=== PATIENT | male | born 1940 | race African-American/Black ===

== ENCOUNTER 2017-08-26 10:45 | Inpatient (IN) | payer OTHER ==
[2017-08-26] MEDS ORDERED: METOCLOPRAMIDE HCL INJECTION 10 MG/2 ML VIAL IVPUSH ONE (11:24)
[2017-08-26] MEDS ORDERED: SODIUM CHLORIDE 1,000 ML IV STA (11:25)
--- NOTE | 2017-08-26 11:48 | PDOC ---
Attending Attestation - Resident Resident Name: Juan Pablo Vargas - ED Attending Attestation I have performed the following: I have examined & evaluated the patient, The case was reviewed & discussed with the resident, I agree w/resident's findings & plan, Exceptions are as noted - HPI HPI: 08/26/17 11:38 76 year old male c/ pmh HTN, HLD, CKD, hepatitis B, liver ca not on chemotherapy p/w 2 weeks of vertiginous like symptoms. Pt reports that occasional movements causes a slow-moving vertiginous symptoms. No associated nausea or vomiting. Lately, since yesterday, started to note posterior headache worsened with movements. Not thunderclapping and not worst headache of life. Denies any other numbness, weakness, chest pain, SOB. - Physicial Exam PE: 08/26/17 11:40 GENERAL: Awake, alert, and fully oriented, in no acute distress. HEAD: No signs of trauma EYES: EOMI, sclera anicteric, conjunctiva clear ENT: Auricles normal inspection, hearing grossly normal, nares patent NECK: Normal ROM, supple LUNGS: Breath sounds equal, clear to auscultation bilaterally. No wheezes, and no crackles HEART: Regular rate and rhythm, normal S1 and S2, no murmurs, rubs or gallops ABDOMEN: Soft, nontender, normoactive bowel sounds. No guarding, no rebound. No masses EXTREMITIES: Normal range of motion, no edema. No clubbing or cyanosis. No cords, erythema, or tenderness NEUROLOGICAL: Cranial nerves II through XII intact. Normal speech. 5/5 strength upper and lower extremities. Sensation intact. No pronator drift. No dysmetria. Heel to smith normal. Rapid alternating normal. SKIN: Warm, Dry, normal turgor, no rashes or lesions noted. - Medical Decision Making 08/26/17 11:48 Vital Signs Temp Pulse Resp BP Pulse Ox 98.0 F 59 L 18 143/87 100 08/26/17 10:52 08/26/17 10:52 08/26/17 10:52 08/26/17 10:52 08/26/17 10:52 76 year old M c/ liver ca p/w persistent vertiginous symptoms and posterior headache. Differential includes posterior circulation stroke, metastatis, tension headache , migraine, peripheral vertigo. Head CT, labs, ECG, chest xray. Will admit for further neuro workup. 08/26/17 13:[address]: No significant interval change. Moderate atrophy and mild periventricular chronic microvascular ischemic disease changes. Questionable tiny right posterior basal ganglia old lacunar infarct. Chest xray reviewed: Cardiomegaly CBC, BMP 08/26/17 13:00 08/26/17 13:00 CMP Sodium 141 mmol/L (136-145) 08/26/17 13:00 Potassium 3.8 mmol/L (3.5-5.1) D 08/26/17 13:00 Chloride 105 mmol/L (98-107) 08/26/17 13:00 Carbon Dioxide 27 mmol/L (21-32) 08/26/17 13:00 Anion Gap 9 (8-16) 08/26/17 13:00 BUN 21 mg/dL (7-18) H 08/26/17 13:00 Creatinine 1.5 mg/dL (0.7-1.3) H 08/26/17 13:00 Creat Clearance w eGFR 45.50 (>60) 08/26/17 13:00 Random Glucose 95 mg/dL (74-106) D 08/26/17 13:00 Calcium 8.7 mg/dL (8.5-10.1) 08/26/17 13:00 Total Bilirubin 0.5 mg/dL (0.2-1.0) D 08/26/17 13:00 AST 21 U/L (15-37) 08/26/17 13:00 ALT 28 U/L (12-78) 08/26/17 13:00 Alkaline Phosphatase 88 U/L (45-117) 08/26/17 13:00 Creatine Kinase 163 IU/L (39-308) 08/26/17 13:00 Troponin I < 0.02 ng/ml (0.00-0.05) 08/26/17 13:00 Total Protein 7.7 g/dl (6.4-8.2) 08/26/17 13:00 Albumin 3.8 g/dl (3.4-5.0) 08/26/17 13:00 Heart Score/ECG Review #1 ECG reviewed & interpreted by me at: 11:40 08/26/17 11:51 NSR 56, LVH, no std/junaid, normal axis, normal intervals, QTC 384 msec, no brugada , no HOCM NIH Stroke Scale - Last Known Well Date/Time & Onset Date Last Known Well: 08/12/17 - Initial Evaluation Level of consciousness: Alert Ask patient the month and their age: Answers both correctly Ask patient to open & close eyes; make fist and let go: Obeys both correctly Best gaze (horizontal eye movement): Normal Visual field testing: No visual field loss Facial paresis (Show teeth/raise eyebrows/close eyes tight): Normal symmetrical movement Motor Function: Left Arm: Normal Motor Function: Right Arm: Normal (extends arm 90 (or 45) degrees for 10 seconds without drift Motor Function: Left Leg: Normal (extends leg 30 degrees for 5 seconds without drift) Motor Function: Right Leg: Normal (extends leg 30 degrees for 5 seconds without drift) Limb Ataxia: No ataxia Sensory(Use pinprick test arms,legs,trunk,face/side to side): Normal Best language (Describe picture, name items, read sentences): No Aphasia Dysarthria (read several words): Normal articulation Extinction and Inattention: No abnormality - Total Score NIH Stroke Scale Score: 0
--- NOTE | 2017-08-26 12:15 | PDOC ---
History of Present Illness - General Chief Complaint: Headache Stated Complaint: DIZZINESS/WEAKNESS/HEADACHE Time Seen by Provider: 08/26/17 11:10 History Source: Patient Exam Limitations: No Limitations - History of Present Illness Initial Comments: 08/26/17 12:06 Patient is a 76M with history of liver cancer s/p surgery, HTN, HLD, Hep C (on tenofovir) here today complaining of 1 day of headache and 2 weeks of dizziness. He states the headache onset gradually last night and radiates from the front of his head to the back of his neck. His pain gets worse with flexion of his neck. He states that his dizziness started insidiously about two weeks ago. He denies falling or any sudden worsening. He denies worsening of dizziness with activity. Denies fevers, chills, nausea, vomiting. Denies chest pain and shortness of breath. Past History - Past Medical History Allergies/Adverse Reactions: Allergies Allergy/AdvReac Type Severity Reaction Status Date / Time No Known Drug Allergies Allergy Verified 08/26/17 10:51 Home Medications: Ambulatory Orders Aspirin [Aspirin EC] 325 mg PO DAILY 03/06/15 Metoprolol Succinate [Toprol Xl] 50 mg PO DAILY 03/06/15 Nifedipine [Nifedical Xl] 90 mg PO HS 03/06/15 Simvastatin 10 mg PO HS 03/06/15 Tamsulosin HCl [Flomax -] 0.4 mg PO ASDIR 03/06/15 Tenofovir Disoproxil Fumarate [Viread] 300 mg PO DAILY 03/06/15 Folic Acid 0.4 mg PO DAILY 09/12/15 Losartan Potassium [Cozaar] 100 mg PO DAILY 09/12/15 Finasteride [Proscar -] 5 mg PO DAILY 08/26/17 Anemia: No Asthma: No Cancer: Yes (LIVER CANCER SURGERY) Cardiac Disorders: Yes (CAD) CVA: No COPD: No CHF: No DVT: No Dementia: No Diabetes: No GI Disorders: Yes (ENLARGED PROSTATE) Disorders: No HTN: Yes Hypercholesterolemia: Yes Liver Disease: Yes Seizures: No Thyroid Disease: No - Surgical History Abdominal Surgery: Yes (LIVER) - Suicide/Smoking/Psychosocial Hx Smoking History: Never smoked Have you smoked in the past 12 months: No Information on smoking cessation initiated: No Hx Alcohol Use: No Drug/Substance Use Hx: No Substance Use Type: None Hx Substance Use Treatment: No Review of Systems - Review of Systems Comments:: 08/26/17 12:15 GENERAL/CONSTITUTIONAL: No fever or chills. No weakness. HEAD, EYES, EARS, NOSE AND THROAT: No change in vision. No sore throat. CARDIOVASCULAR: No chest pain or shortness of breath RESPIRATORY: No cough, wheezing, or hemoptysis. GASTROINTESTINAL: No nausea, vomiting, diarrhea or constipation. GENITOURINARY: No dysuria, frequency, or change in urination. MUSCULOSKELETAL: No joint or muscle swelling or pain. No neck or back pain. SKIN: No rash NEUROLOGIC: No headache. Positive for vertigo. Negative for loss of consciousness, or change in strength/sensation. HEMATOLOGIC/LYMPHATIC: No anemia, easy bleeding, or history of blood clots. ALLERGIC/IMMUNOLOGIC: No hives or skin allergy. *Physical Exam - Vital Signs Last Vital Signs Temp Pulse Resp BP Pulse Ox 98.0 F 59 L 18 143/87 100 08/26/17 10:52 08/26/17 10:52 08/26/17 10:52 08/26/17 10:52 08/26/17 10:52 - Physical Exam Comments: 08/26/17 12:19 GENERAL: Awake, alert, and fully oriented, in no acute distress HEAD: No signs of trauma, normocephalic, atraumatic EYES: PERRLA, EOMI, sclera anicteric, conjunctiva clear ENT: Auricles normal inspection, hearing grossly normal, nares patent, oropharynx clear without exudates. Moist mucosa NECK: Normal ROM, supple, no lymphadenopathy, JVD, or masses LUNGS: No distress, speaks full sentences, clear to auscultation bilaterally HEART: Regular rate and rhythm, normal S1 and S2, no murmurs, rubs or gallops, peripheral pulses normal and equal bilaterally. ABDOMEN: Soft, nontender, normoactive bowel sounds. No guarding, no rebound. No masses EXTREMITIES: Normal inspection, Normal range of motion, no edema. No clubbing or cyanosis. NEUROLOGICAL: Cranial nerves II through XII grossly intact. Normal speech, normal gait, no focal sensorimotor deficits. No ataxia, negative romberg. SKIN: Warm, Dry, normal turgor, no rashes or lesions noted. ED Treatment Course - LABORATORY CBC & Chemistry Diagram: 08/26/17 13:00 08/26/17 13:00 - RADIOLOGY Radiology Studies Ordered: Category Date Time Status HEAD CT WITHOUT CONTRAST [CT] Stat CT Scan 08/26/17 11:23 Ordered CHEST X-RAY PORTABLE* [RAD] Stat Radiology 08/26/17 11:23 Taken Medical Decision Making - Medical Decision Making 08/26/17 12:19 Patient is 76M with history of liver cancer, HBV, HTN, HLD here today complaining of headache and dizziness. DDx includes, but is not limited to: posterior circulation stroke, mets, UA. No focal neuro deficits, 2 weeks since onset. Will evaluate with cbc, cmp, trop, ekg, pt/inr, cxr, head ct. Likely admit for brain MRI. 08/26/17 12:36 EKG shows sinus bradycardia with rate of 56. No st elevations/depressions. No significant t wave abnormalities. Normal axis. Normal DE/QRS/QTc intervals. 08/26/17 13:00 CT head shows no significant interval change. Does show mild periventricular chronic microvascular ischemic chagnes and questionable tiny right posterior basal ganglia old lacunar infarct. 08/26/17 13:03 CXR is poor quality, shows no acute cardiopulmonary process. Admitted for further stroke evaluation. *DC/Admit/Observation/Transfer Diagnosis at time of Disposition: Dizziness - Discharge Dispostion Condition at time of disposition: Stable Decision to Admit order: Yes - Referrals - Patient Instructions - Post Discharge Activity
[2017-08-26 13:14] LABS: HEMATOCRIT 39.8 % (35.4-49); HEMOGLOBIN 12.9 GM/dL (11.7-16.9); MCH 28.8 pg (25.7-33.7); MCHC 32.4 g/dl (32.0-35.9); MEAN CELL VOLUME 88.9 fl (80-96); MEAN PLT VOLUME 9.8 fl (7.5-11.1); PLATELET COUNT 143 K/MM3 (134-434); RBC 4.47 M/mm3 (4.00-5.60); RDW 13.7 % (11.9-15.9); WHITE BLOOD COUNT 5.7 K/mm3 (4.0-10.0)
[2017-08-26] MEDS ORDERED: METOCLOPRAMIDE HCL INJECTION 10 MG/2 ML VIAL ONE (13:14)
[2017-08-26 13:34] LABS: INR 1.16 (0.82-1.09); PROTHROMBIN TIME (PATIENT) 13.1 SEC (9.7-13.0)
[2017-08-26 13:45] LABS: ALBUMIN 3.8 g/dl (3.4-5.0); ANION GAP 9 (8-16); BILIRUBIN,TOTAL 0.5 mg/dL (0.2-1.0); BLOOD UREA NITROGEN 21 mg/dL (7-18); CALCIUM 8.7 mg/dL (8.5-10.1); CHLORIDE 105 mmol/L (98-107); CO2 27 mmol/L (21-32); CREATININE 1.5 mg/dL (0.7-1.3); GLUCOSE,RANDOM 95 mg/dL (74-106); SGPT/ALT 28 U/L (12-78); SODIUM 141 mmol/L (136-145); TOT PROT 7.7 g/dl (6.4-8.2)
[2017-08-26 13:48] LABS: ALK PHOS 88 U/L (45-117)
[2017-08-26 13:52] LABS: POTASSIUM 3.8 mmol/L (3.5-5.1); SGOT/AST 21 U/L (15-37)
[2017-08-26 14:20] LABS: URINE APPEARANCE CLEAR; URINE BILIRUBIN NEGATIVE (<2.0 mg/dL); URINE BLOOD NEGATIVE (NEGATIVE); URINE COLOR STRAW; URINE GLUCOSE (UA) NEGATIVE (NEGATIVE); URINE KETONE NEGATIVE (NEGATIVE); URINE LEUK ESTERASE NEGATIVE (NEGATIVE); URINE NITRITE NEGATIVE (NEGATIVE); URINE PROTEIN NEGATIVE (NEGATIVE); URINE UROBILINOGEN NEGATIVE mg/dL (0.2-1.0)
--- NOTE | 2017-08-26 19:14 | HP ---
Admitting History and Physical - Primary Care Physician PCP: Yaakov Lawson - Admission Chief Complaint: Headache History of Present Illness: Pt with SLADE, in the middle of the head ( from the front to the back), dull, that developed last night and didn't allow pt to sleep. Pt w/o sensory or motor weakness. Pt also c/o dizziness for the last couple of weeks, not associated with CP, palpitations, SOB. History Source: Patient - Past Medical History Cardiovascular: Yes: HTN, Hyperlipdemia Gastrointestinal: Yes: Other (Hx/o Hepatitis, Liver mass) Renal/: Yes: BPH - Past Surgical History Additional Past Surgical History: Liver SX for mass removal. - Smoking History Smoking history: Never smoked Have you smoked in the past 12 months: No - Alcohol/Substance Use Hx Alcohol Use: No Home Medications - Allergies Allergies/Adverse Reactions: Allergies Allergy/AdvReac Type Severity Reaction Status Date / Time No Known Drug Allergies Allergy Verified 08/26/17 10:51 - Home Medications Home Medications: Ambulatory Orders Aspirin [Aspirin EC] 325 mg PO DAILY 03/06/15 Metoprolol Succinate [Toprol Xl] 50 mg PO DAILY 03/06/15 Nifedipine [Nifedical Xl] 90 mg PO HS 03/06/15 Simvastatin 10 mg PO HS 03/06/15 Tamsulosin HCl [Flomax -] 0.4 mg PO ASDIR 03/06/15 Tenofovir Disoproxil Fumarate [Viread] 300 mg PO DAILY 03/06/15 Folic Acid 0.4 mg PO DAILY 09/12/15 Losartan Potassium [Cozaar] 100 mg PO DAILY 09/12/15 Finasteride [Proscar -] 5 mg PO DAILY 08/26/17 Review of Systems - Review of Systems Constitutional: denies: Chills, Fever Eyes: denies: Blurred Vision, Double Vision HENT: denies: Ear Discharge, Ear Pain, Epistaxis, Nasal Congestion, Throat Pain Neck: denies: Pain on Movement, Stiffness Cardiovascular: denies: Chest Pain, Edema, Palpitations Respiratory: denies: Cough, SOB, SOB on Exertion Gastrointestinal: denies: Abdominal Pain, Diarrhea, Nausea, Vomiting Genitourinary: denies: Burning, Discharge Musculoskeletal: denies: Back Pain, Muscle Pain Integumentary: denies: Bruising, Rash Neurological: reports: Dizziness, Headache. denies: Change in LOC, Change in Speech, Confusion, Incoordination, Numbness, Parasthesia, Syncope, Tremors, Unsteady Gait Endocrine: denies: Excessive Sweating, Intolerance to Cold Hematology/Lymphatic: denies: Easily Bruised, Excessive Bleeding Psychiatric: denies: Anxiety, Depression Physical Examination Vital Signs: Vital Signs Temperature 98.0 F 08/26/17 10:52 Pulse Rate 71 08/26/17 14:52 Respiratory Rate 18 08/26/17 10:52 Blood Pressure 109/68 08/26/17 14:52 O2 Sat by Pulse Oximetry (%) 97 08/26/17 14:52 Constitutional: Yes: No Distress, Calm Eyes: Yes: Conjunctiva Clear, EOM Intact, PERRL HENT: Yes: Normocephalic. No: Epistaxis, Pharyngeal Erythema, Rhinnorhea Neck: Yes: Trachea Midline. No: Lymphadenopathy, Tenderness Cardiovascular: Yes: Regular Rate and Rhythm, S1, S2 Respiratory: Yes: Regular, CTA Bilaterally. No: Rales Gastrointestinal: Yes: Normal Bowel Sounds, Soft. No: Tenderness ...Rectal Exam: Yes: Deferred Renal/: No: CVA Tenderness - Left, CVA Tenderness - Right Musculoskeletal: No: Back Pain, Joint Swelling Edema: No Integumentary: No: Bruising, Rash Neurological: Yes: Alert, Oriented, Cran Nerves II-XII Intact Psychiatric: Yes: Alert, Oriented Labs: CBC, BMP 08/26/17 13:00 08/26/17 13:00 Imaging - Results Chest X-ray: Report Reviewed Cat Scan: Report Reviewed Problem List - Problems (1) Dizziness Code(s): R42 - DIZZINESS AND GIDDINESS (2) Headache Code(s): R51 - HEADACHE (3) CVA (cerebral vascular accident) Code(s): I63.9 - CEREBRAL INFARCTION, UNSPECIFIED (4) High blood pressure Assessment/Plan: probable- per head CT scan Code(s): I10 - ESSENTIAL (PRIMARY) HYPERTENSION Qualifiers: Hypertension type: essential hypertension Qualified Code(s): I10 - Essential (primary) hypertension Assessment/Plan Admit to monitor bed Neurochecks Neuro consult. AM labs. Consider repeating Head CT scan in AM. Pt's case was d/w pt and son (at bed side).
[2017-08-26] MEDS ORDERED: NIFEdipine E.R. 90 MG TABLET (FP) PO SCH (22:00)
[2017-08-26] MEDS: ACETAMINOPHEN 325 MG TABLET (FP) PO PRN (22:51)
[2017-08-26] MEDS: ATORVASTATIN CA 10 MG TABLET (FP) PO SCH (22:51)
[2017-08-27 03:17] VITALS: BMI 29.8
[2017-08-27 08:05] LABS: HEMATOCRIT 40.7 % (35.4-49); HEMOGLOBIN 13.3 GM/dL (11.7-16.9); MCH 28.8 pg (25.7-33.7); MCHC 32.7 g/dl (32.0-35.9); MEAN CELL VOLUME 88.2 fl (80-96); MEAN PLT VOLUME 10.1 fl (7.5-11.1); PLATELET COUNT 136 K/MM3 (134-434); RBC 4.62 M/mm3 (4.00-5.60); RDW 13.9 % (11.9-15.9); WHITE BLOOD COUNT 5.7 K/mm3 (4.0-10.0)
[2017-08-27 08:57] LABS: ALBUMIN 3.5 g/dl (3.4-5.0); ANION GAP 10 (8-16); BILIRUBIN,TOTAL 0.4 mg/dL (0.2-1.0); BLOOD UREA NITROGEN 20 mg/dL (7-18); CALCIUM 8.3 mg/dL (8.5-10.1); CHLORIDE 106 mmol/L (98-107); CO2 26 mmol/L (21-32); CREATININE 1.3 mg/dL (0.7-1.3); GLUCOSE,RANDOM 87 mg/dL (74-106); POTASSIUM 3.2 mmol/L (3.5-5.1); SGOT/AST 21 U/L (15-37); SGPT/ALT 27 U/L (12-78); SODIUM 142 mmol/L (136-145); TOT PROT 7.2 g/dl (6.4-8.2)
[2017-08-27 09:06] LABS: ALK PHOS 82 U/L (45-117)
[2017-08-27] MEDS: TAMSULOSIN HCL 0.4 MG CAP.ER.24H (FP) PO SCH (09:29)
[2017-08-27] MEDS: LOSARTAN POTASSIUM 50 MG TABLET (FP) PO SCH (09:29)
[2017-08-27] MEDS ORDERED: PT OWN MED DRAWER 7, Y5N ONE ×2 (09:31→14:26)
[2017-08-27] MEDS ORDERED: ASPIRIN 325 MG ENTERIC COATED TABLET (FP) PO SCH (10:00)
[2017-08-27] MEDS ORDERED: FINASTERIDE 5 MG TABLET (FP) PO SCH (10:00)
[2017-08-27] MEDS ORDERED: TENOFOVIR DISOPROXIL FUMARATE 300 MG TABLET PO SCH (10:00)
[2017-08-27] MEDS ORDERED: FOLIC ACID 1 MG TABLET (FP) PO SCH (10:00)
--- NOTE | 2017-08-27 11:13 | PN ---
Progress Note, Physician - Current Medication List Current Medications: Active Medications Acetaminophen (Tylenol -) 650 mg PO Q6H PRN PRN Reason: PAIN Last Admin: 08/26/17 22:51 Dose: 650 mg Aspirin (Ecotrin -) 325 mg PO DAILY [facility] Last Admin: 08/27/17 09:29 Dose: 325 mg Atorvastatin Calcium (Lipitor -) 10 mg PO HS [facility] Last Admin: 08/26/17 22:51 Dose: 10 mg Finasteride (Proscar -) 5 mg PO DAILY [facility] Last Admin: 08/27/17 09:29 Dose: 5 mg Folic Acid (Folic Acid -) 1 mg PO DAILY [facility] Last Admin: 08/27/17 09:30 Dose: 1 mg Losartan Potassium (Cozaar -) 100 mg PO DAILY [facility] Last Admin: 08/27/17 09:29 Dose: 100 mg Metoprolol Succinate (Toprol Xl -) 50 mg PO DAILY [facility] Last Admin: 08/27/17 09:29 Dose: 50 mg Nifedipine (Procardia Xl -) 90 mg PO [facility] Last Admin: 08/26/17 22:51 Dose: 90 mg Tamsulosin HCl (Flomax -) 0.4 mg PO DAILY@0830 [facility] Last Admin: 08/27/17 09:29 Dose: 0.4 mg Tenofovir Disoproxil Fumarate (Viread -) 300 mg PO DAILY [facility] - Objective Vital Signs: Vital Signs Temperature 97.8 F 08/27/17 09:00 Pulse Rate 68 08/27/17 09:00 Respiratory Rate 16 08/27/17 09:00 Blood Pressure 110/62 08/27/17 09:00 O2 Sat by Pulse Oximetry (%) 96 08/27/17 09:00 Labs: CBC, BMP 08/27/17 07:30 08/27/17 07:30 INR, PTT INR 1.16 (0.82-1.09) H 08/26/17 13:00 Problem List - Problems (1) Dizziness Code(s): R42 - DIZZINESS AND GIDDINESS (2) Headache Code(s): R51 - HEADACHE (3) CVA (cerebral vascular accident) Code(s): I63.9 - CEREBRAL INFARCTION, UNSPECIFIED (4) High blood pressure Code(s): I10 - ESSENTIAL (PRIMARY) HYPERTENSION Qualifiers: Hypertension type: essential hypertension Qualified Code(s): I10 - Essential (primary) hypertension
[2017-08-27] MEDS ORDERED: POLYETHYLENE GLYCOL 3350 119 GM BTL PO ONE (12:10)
[2017-08-27] MEDS ORDERED: KCL 10 MEQ IVPB 10 MEQ/100 ML INFUS.BAG IVPB SCH (12:15)
--- NOTE | 2017-08-27 12:15 | PN ---
Progress Note, Physician History of Present Illness: Pt w/o SLADE, dizziness, palpitation, CP, SOB, abd pain; pt is sitting in bed since yesterday. Pt c/o constipation for couple of days - Current Medication List Current Medications: Active Medications Acetaminophen (Tylenol -) 650 mg PO Q6H PRN PRN Reason: PAIN Last Admin: 08/26/17 22:51 Dose: 650 mg Aspirin (Ecotrin -) 325 mg PO DAILY [facility] Last Admin: 08/27/17 09:29 Dose: 325 mg Atorvastatin Calcium (Lipitor -) 10 mg PO HS [facility] Last Admin: 08/26/17 22:51 Dose: 10 mg Finasteride (Proscar -) 5 mg PO DAILY [facility] Last Admin: 08/27/17 09:29 Dose: 5 mg Folic Acid (Folic Acid -) 1 mg PO DAILY [facility] Last Admin: 08/27/17 09:30 Dose: 1 mg Losartan Potassium (Cozaar -) 100 mg PO DAILY [facility] Last Admin: 08/27/17 09:29 Dose: 100 mg Metoprolol Succinate (Toprol Xl -) 50 mg PO DAILY [facility] Last Admin: 08/27/17 09:29 Dose: 50 mg Nifedipine (Procardia Xl -) 90 mg PO [facility] Last Admin: 08/26/17 22:51 Dose: 90 mg Tamsulosin HCl (Flomax -) 0.4 mg PO DAILY@0830 [facility] Last Admin: 08/27/17 09:29 Dose: 0.4 mg Tenofovir Disoproxil Fumarate (Viread -) 300 mg PO DAILY [facility] - Objective Vital Signs: Vital Signs Temperature 97.8 F 08/27/17 09:00 Pulse Rate 68 08/27/17 09:00 Respiratory Rate 16 08/27/17 09:00 Blood Pressure 110/62 08/27/17 09:00 O2 Sat by Pulse Oximetry (%) 96 08/27/17 09:00 Constitutional: Yes: No Distress, Calm Cardiovascular: Yes: Regular Rate and Rhythm, S1, S2 Respiratory: Yes: Regular, CTA Bilaterally. No: Rales Gastrointestinal: Yes: Normal Bowel Sounds, Soft. No: Tenderness Edema: No Neurological: Yes: Alert, Oriented, Cran Nerves II-XII Intact Psychiatric: Yes: Alert, Oriented Labs: CBC, BMP 08/27/17 07:30 08/27/17 07:30 INR, PTT INR 1.16 (0.82-1.09) H 08/26/17 13:00 Problem List - Problems (1) Dizziness Code(s): R42 - DIZZINESS AND GIDDINESS (2) Headache Code(s): R51 - HEADACHE (3) CVA (cerebral vascular accident) Code(s): I63.9 - CEREBRAL INFARCTION, UNSPECIFIED (4) High blood pressure Code(s): I10 - ESSENTIAL (PRIMARY) HYPERTENSION Qualifiers: Hypertension type: essential hypertension Qualified Code(s): I10 - Essential (primary) hypertension (5) Hyponatremia Code(s): E87.1 - HYPO-OSMOLALITY AND HYPONATREMIA Assessment/Plan Admitted to monitor bed Neurochecks Neuro consult- further eval per Neuro. Peplete K; Check Mg AM labs. Case was reviewed with pt's nurse.
[2017-08-27 13:51] LABS: MAGNESIUM 2.4 mg/dL (1.8-2.4)
[2017-08-27] MEDS: POTASSIUM CHLORIDE 10 MEQ in SODIUM CHLORIDE 100 ML IVPB SCH ×2 (13:51→17:46)
[2017-08-27] MEDS ORDERED: POTASSIUM CHLORIDE TABS 20 MEQ TABLET.ER (FP) PO ONE (17:45)
[2017-08-27] MEDS: ATORVASTATIN CA 10 MG TABLET (FP) PO SCH (21:50)
[2017-08-27] MEDS: NIFEdipine E.R. 90 MG TABLET (FP) PO SCH (21:50)
[2017-08-28] MEDS: ACETAMINOPHEN 325 MG TABLET (FP) PO PRN ×2 (06:07→10:03)
[2017-08-28 07:25] LABS: ANION GAP 9 (8-16); BLOOD UREA NITROGEN 25 mg/dL (7-18); CALCIUM 8.5 mg/dL (8.5-10.1); CHLORIDE 106 mmol/L (98-107); CO2 26 mmol/L (21-32); GLUCOSE,RANDOM 99 mg/dL (74-106); POTASSIUM 3.4 mmol/L (3.5-5.1); SODIUM 141 mmol/L (136-145)
[2017-08-28 07:28] LABS: CREATININE 1.3 mg/dL (0.7-1.3)
[2017-08-28] MEDS: LOSARTAN POTASSIUM 50 MG TABLET (FP) PO SCH (10:00)
[2017-08-28] MEDS: TAMSULOSIN HCL 0.4 MG CAP.ER.24H (FP) PO SCH (10:00)
--- NOTE | 2017-08-28 12:47 | PN ---
Progress Note, Physician History of Present Illness: Pt w/o dizziness, palpitation, CP, SOB, abd pain; pt is sitting in bed since yesterday. Pt c/o constipation for couple of days. Pt with SLADE and neck pain thia AM, now resolved - Current Medication List Current Medications: Active Medications Acetaminophen (Tylenol -) 650 mg PO Q6H PRN PRN Reason: PAIN Last Admin: 08/28/17 10:03 Dose: 650 mg Aspirin (Ecotrin -) 325 mg PO DAILY@1300 [facility] Atorvastatin Calcium (Lipitor -) 10 mg PO [facility] Last Admin: 08/27/17 21:50 Dose: 10 mg Finasteride (Proscar -) 5 mg PO [facility] Folic Acid (Folic Acid -) 1 mg PO [facility] Losartan Potassium (Cozaar -) 100 mg PO DAILY [facility] Last Admin: 08/28/17 10:00 Dose: 100 mg Metoprolol Succinate (Toprol Xl -) 50 mg PO DAILY [facility] Last Admin: 08/28/17 10:00 Dose: 50 mg Nifedipine (Procardia Xl -) 90 mg PO DAILY@1300 [facility] Last Admin: 08/27/17 21:50 Dose: 90 mg Tamsulosin HCl (Flomax -) 0.4 mg PO DAILY@0830 [facility] Last Admin: 08/28/17 10:00 Dose: 0.4 mg Tenofovir Disoproxil Fumarate (Viread -) 300 mg PO [facility] - Objective Vital Signs: Vital Signs Temperature 98 F 08/28/17 06:37 Pulse Rate 74 08/28/17 06:37 Respiratory Rate 18 08/28/17 06:37 Blood Pressure 147/87 08/28/17 06:37 O2 Sat by Pulse Oximetry (%) 97 08/27/17 21:00 Constitutional: Yes: No Distress, Calm Cardiovascular: Yes: Regular Rate and Rhythm, S1, S2 Respiratory: Yes: Regular, CTA Bilaterally. No: Rales Gastrointestinal: Yes: Normal Bowel Sounds, Soft. No: Tenderness Edema: No Neurological: Yes: Alert, Oriented, Cran Nerves II-XII Intact Labs: CBC, BMP 08/27/17 07:30 08/28/17 05:30 INR, PTT INR 1.16 (0.82-1.09) H 08/26/17 13:00 Problem List - Problems (1) Dizziness Code(s): R42 - DIZZINESS AND GIDDINESS (2) Headache Code(s): R51 - HEADACHE (3) CVA (cerebral vascular accident) Code(s): I63.9 - CEREBRAL INFARCTION, UNSPECIFIED (4) High blood pressure Code(s): I10 - ESSENTIAL (PRIMARY) HYPERTENSION Qualifiers: Hypertension type: essential hypertension Qualified Code(s): I10 - Essential (primary) hypertension (5) Hypokalemia Assessment/Plan: improved; to replete again. Code(s): E87.6 - HYPOKALEMIA (6) Constipation Code(s): K59.00 - CONSTIPATION, UNSPECIFIED Assessment/Plan Admitted to monitor bed Neurochecks Neuro consult- further eval per Neuro. Replete Everette Wang AM labs. Case was reviewed with pt's nurse.
[2017-08-28] MEDS: ASPIRIN 325 MG ENTERIC COATED TABLET (FP) PO SCH (13:00)
[2017-08-28] MEDS: NIFEdipine E.R. 90 MG TABLET (FP) PO SCH (13:00)
[2017-08-28] MEDS ORDERED: POTASSIUM CHLORIDE TABS 20 MEQ TABLET.ER (FP) PO ONE (13:30)
[2017-08-28] MEDS: POLYETHYLENE GLYCOL 3350 119 GM BTL PO SCH ×2 (13:46→21:16)
[2017-08-28] MEDS: ATORVASTATIN CA 10 MG TABLET (FP) PO SCH (21:15)
[2017-08-28] MEDS ORDERED: TENOFOVIR DISOPROXIL FUMARATE 300 MG TABLET PO SCH (22:00)
[2017-08-28] MEDS ORDERED: FINASTERIDE 5 MG TABLET (FP) PO SCH (22:00)
[2017-08-28] MEDS ORDERED: FOLIC ACID 1 MG TABLET (FP) PO SCH (22:00)
--- NOTE | 2017-08-28 22:28 | EKG ---
Test Reason : Blood Pressure : / mmHG Vent. Rate : 056 BPM Atrial Rate : 056 BPM P-R Int : 156 ms QRS Dur : 100 ms QT Int : 398 ms P-R-T Axes : 020 -07 021 degrees QTc Int : 384 ms SINUS BRADYCARDIA MODERATE VOLTAGE CRITERIA FOR LVH, MAY BE NORMAL VARIANT BORDERLINE ECG WHEN COMPARED WITH ECG OF 23-MAY-2015 18:32, NO SIGNIFICANT CHANGE WAS FOUND Confirmed by POLLY RIDDLE MD ([id number]) on 08/28/2017 10:28:07 PM Referred By: Confirmed By:POLLY RIDDLE MD
[2017-08-29] MEDS ORDERED: PT OWN MED DRAWER 7, Y5N ONE ×5 (01:32→14:37)
[2017-08-29 07:19] LABS: ANION GAP 7 (8-16); BLOOD UREA NITROGEN 22 mg/dL (7-18); CALCIUM 8.5 mg/dL (8.5-10.1); CHLORIDE 106 mmol/L (98-107); CO2 28 mmol/L (21-32); CREATININE 1.4 mg/dL (0.7-1.3); GLUCOSE,RANDOM 103 mg/dL (74-106); MAGNESIUM 2.5 mg/dL (1.8-2.4); POTASSIUM 3.6 mmol/L (3.5-5.1); SODIUM 141 mmol/L (136-145)
[2017-08-29] MEDS: TAMSULOSIN HCL 0.4 MG CAP.ER.24H (FP) PO SCH (08:48)
[2017-08-29] MEDS: LOSARTAN POTASSIUM 50 MG TABLET (FP) PO SCH (09:06)
[2017-08-29] MEDS: POLYETHYLENE GLYCOL 3350 119 GM BTL PO SCH (09:06)
--- NOTE | 2017-08-29 09:18 | CONSULT ---
Consult - text type - Consultation Consultation Note: Neurology History of Present Illness - General Chief Complaint: Headache Stated Complaint: DIZZINESS/WEAKNESS/HEADACHE - History of Present Illness Patient is a 76M with history of liver cancer s/p surgery, HTN, HLD, Hep C (on tenofovir) admitted for new onset headache and 2 weeks of dizziness. He stated the headache had onset gradually overnight and radiatede from the front of his head to the back of his neck. His pain was worse with flexion of his neck with possibly cervicalgia. He states that his dizziness started insidiously about two weeks ago. He denied falling or any sudden worsening. He denies worsening of dizziness with activity. Denies fevers, chills, nausea, vomiting. Denies chest pain and shortness of breath. He completed CT head which did not show acute changes, there was note of old infarct. Discussed with patient and he does take ASA 325mg daily and reports good compliance. Also on Statin for HLD. Of note, blood pressures have varied during his admission and possibly tension type headache 2/2 HTN. Today, his symptoms are better and was ambulating during my encounter. Denies any new neurologic complaints. Past History - Past Medical History Allergies/Adverse Reactions: Allergies Allergy/AdvReac Type Severity Reaction Status Date / Time No Known Drug Allergies Allergy Verified 08/26/17 10:51 Home Medications: Ambulatory Orders Aspirin [Aspirin EC] 325 mg PO DAILY 03/06/15 Metoprolol Succinate [Toprol Xl] 50 mg PO DAILY 03/06/15 Nifedipine [Nifedical Xl] 90 mg PO HS 03/06/15 Simvastatin 10 mg PO HS 03/06/15 Tamsulosin HCl [Flomax -] 0.4 mg PO ASDIR 03/06/15 Tenofovir Disoproxil Fumarate [Viread] 300 mg PO DAILY 03/06/15 Folic Acid 0.4 mg PO DAILY 09/12/15 Losartan Potassium [Cozaar] 100 mg PO DAILY 09/12/15 Finasteride [Proscar -] 5 mg PO DAILY 08/26/17 Anemia: No Asthma: No Cancer: Yes (LIVER CANCER SURGERY) Cardiac Disorders: Yes (CAD) CVA: No COPD: No CHF: No DVT: No Dementia: No Diabetes: No GI Disorders: Yes (ENLARGED PROSTATE) Disorders: No HTN: Yes Hypercholesterolemia: Yes Liver Disease: Yes Seizures: No Thyroid Disease: No - Surgical History Abdominal Surgery: Yes (LIVER) - Suicide/Smoking/Psychosocial Hx Smoking History: Never smoked Have you smoked in the past 12 months: No Information on smoking cessation initiated: No Hx Alcohol Use: No Drug/Substance Use Hx: No Substance Use Type: None Hx Substance Use Treatment: No Review of Systems GENERAL/CONSTITUTIONAL: No fever or chills. No weakness. HEAD, EYES, EARS, NOSE AND THROAT: No change in vision. No sore throat. CARDIOVASCULAR: No chest pain or shortness of breath RESPIRATORY: No cough, wheezing, or hemoptysis. GASTROINTESTINAL: No nausea, vomiting, diarrhea or constipation. GENITOURINARY: No dysuria, frequency, or change in urination. MUSCULOSKELETAL: No joint or muscle swelling or pain. No neck or back pain. SKIN: No rash NEUROLOGIC: No headache. Positive for vertigo. Negative for loss of consciousness, or change in strength/sensation. HEMATOLOGIC/LYMPHATIC: No anemia, easy bleeding, or history of blood clots. ALLERGIC/IMMUNOLOGIC: No hives or skin allergy. *Physical Exam Vital Signs Period Temp Pulse Resp BP Sys/Clark Pulse Ox Last 24 Hr 97.6 F-98.5 F 57-68 16-18 116-149/72-89 96-96 GENERAL: Awake, alert, and fully oriented, in no acute distress HEAD: No signs of trauma, normocephalic, atraumatic EYES: PERRLA, EOMI, sclera anicteric, conjunctiva clear ENT: Auricles normal inspection, hearing grossly normal, nares patent, oropharynx clear without exudates. Moist mucosa NECK: Normal ROM, supple, no lymphadenopathy, JVD, or masses LUNGS: No distress, speaks full sentences, clear to auscultation bilaterally HEART: Regular rate and rhythm, normal S1 and S2, no murmurs, rubs or gallops, peripheral pulses normal and equal bilaterally. ABDOMEN: Soft, nontender, normoactive bowel sounds. No guarding, no rebound. No masses EXTREMITIES: Normal inspection, Normal range of motion, no edema. No clubbing or cyanosis. NEUROLOGICAL: Cranial nerves II through XII grossly intact. Normal speech, normal gait, no focal sensorimotor deficits. No ataxia, negative romberg. SKIN: Warm, Dry, normal turgor, no rashes or lesions noted. CBCD WBC 5.7 K/mm3 (4.0-10.0) 08/27/17 07:30 RBC 4.62 M/mm3 (4.00-5.60) 08/27/17 07:30 Hgb 13.3 GM/dL (11.7-16.9) 08/27/17 07:30 Hct 40.7 % (35.4-49) 08/27/17 07:30 MCV 88.2 fl (80-96) 08/27/17 07:30 MCHC 32.7 g/dl (32.0-35.9) 08/27/17 07:30 RDW 13.9 % (11.9-15.9) 08/27/17 07:30 Plt Count 136 K/MM3 (134-434) 08/27/17 07:30 MPV 10.1 fl (7.5-11.1) 08/27/17 07:30 CMP Sodium 141 mmol/L (136-145) 08/29/17 06:37 Potassium 3.6 mmol/L (3.5-5.1) 08/29/17 06:37 Chloride 106 mmol/L (98-107) 08/29/17 06:37 Carbon Dioxide 28 mmol/L (21-32) 08/29/17 06:37 Anion Gap 7 (8-16) L 08/29/17 06:37 BUN 22 mg/dL (7-18) H 08/29/17 06:37 Creatinine 1.4 mg/dL (0.7-1.3) H 08/29/17 06:37 Creat Clearance w eGFR 53.67 (>60) 08/27/17 07:30 Random Glucose 103 mg/dL (74-106) 08/29/17 06:37 Calcium 8.5 mg/dL (8.5-10.1) 08/29/17 06:37 Total Bilirubin 0.4 mg/dL (0.2-1.0) 08/27/17 07:30 AST 21 U/L (15-37) 08/27/17 07:30 ALT 27 U/L (12-78) 08/27/17 07:30 Alkaline Phosphatase 82 U/L (45-117) 08/27/17 07:30 Total Protein 7.2 g/dl (6.4-8.2) 06/02/18 07:30 Albumin 3.5 g/dl (3.4-5.0) 08/27/17 07:30 CARDIAC ENZYMES Creatine Kinase 163 IU/L (39-308) 08/26/17 13:00 Troponin I < 0.02 ng/ml (0.00-0.05) 08/26/17 13:00 - RADIOLOGY CT head reviewed Medical Decision Making 76M with history of liver cancer s/p surgery, HTN, HLD, Hep C (on tenofovir) admitted for new onset headache and 2 weeks of dizziness. He stated the headache had onset gradually overnight and radiatede from the front of his head to the back of his neck. His pain was worse with flexion of his neck with possibly cervicalgia. He states that his dizziness started insidiously about two weeks ago. He denied falling or any sudden worsening. He denies worsening of dizziness with activity. Denies fevers, chills, nausea, vomiting. Denies chest pain and shortness of breath. He completed CT head which did not show acute changes, there was note of old infarct. Discussed with patient and he does take ASA 325mg daily and reports good compliance. Should be continued Also on Statin for HLD, should be continued. Blood pressures have varied during his admission and possibly tension type headache 2/2 HTN. Does not require further imaging and neurologic exam nonfocal. Continue BP mgmt, maintain normotensive range. Hydration recommended, avoid sudden or rapid head movement Symptoms improved, would not require further imaging at this time, asymptomatic Discussed outpatient followup, patient in agreement, will call for appt.
[2017-08-29] MEDS: ASPIRIN 325 MG ENTERIC COATED TABLET (FP) PO SCH (12:46)
[2017-08-29 14:35] VITALS: BP 137/77; PULSE 57; TEMP 97.8
[2017-08-29] MEDS: NIFEdipine E.R. 90 MG TABLET (FP) PO SCH (15:12)
--- NOTE | 2017-08-29 15:37 | DS ---
Physical Examination Vital Signs: Vital Signs Temperature 97.8 F 08/29/17 14:00 Pulse Rate 57 L 08/29/17 14:00 Respiratory Rate 16 08/29/17 14:00 Blood Pressure 137/77 08/29/17 14:00 O2 Sat by Pulse Oximetry (%) 97 08/29/17 09:00 Findings/Remarks: Pt w/o SLADE, neck pain today. Pt w/o SOB, CP, palpitaitons, dizziness, and pain. Constitutional: Yes: No Distress, Calm Cardiovascular: Yes: Regular Rate and Rhythm, S1, S2 Respiratory: Yes: Regular, CTA Bilaterally. No: Rales Gastrointestinal: Yes: Normal Bowel Sounds, Soft. No: Tenderness Edema: No Neurological: Yes: Alert, Oriented, Cran Nerves II-XII Intact Labs: CBC, BMP 08/27/17 07:30 08/29/17 06:37 Discharge Summary Reason For Visit: DIZZINESS Current Active Problems CVA (cerebral vascular accident) (Acute) Constipation (Acute) Dizziness (Acute) Hyponatremia (Acute) Procedures: Principal: Head CT scan. CXR Hospital Course: Pt came to ER c/o midline SLADE, from front to back, no specific trigger, lasting all night before ER visit. 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 Pt was admitted to monitor bed; pt's SLADE resolved; pt was seen by Neuro (Dr. Temple), cleared for DC with outpatient f/u. Condition: Improved - Instructions Diet, Activity, Other Instructions: Diet: resume. Call doctor office for appointment. Referrals: Arnulfo Temple MD [Staff Physician] - (1 to 2 weeks; call for appointment.) Yaakov Lawson MD [Primary Care Provider] - (within one week; call for appointment.) Disposition: HOME - Home Medications Comprehensive Discharge Medication List: Ambulatory Orders
== END 2017-08-29 18:21 | disposition home or self-care (01) | DRG 149 ==
LOC: JER 10:45 → JERBED 14:00 → J4S 20:34
PROVIDERS: ADMIT Specialist; ATTEND Specialist
DX: R42 Dizziness and giddiness (principal); B19.10 Unspecified viral hepatitis B without hepatic coma; E87.1 Hypo-osmolality and hyponatremia; I12.9 Hypertensive chronic kidney disease with stage 1 through stage 4 chronic kidney disease, or unspecified chronic kidney disease; N18.9 Chronic kidney disease, unspecified; E78.5 Hyperlipidemia, unspecified; Z85.05 Personal history of malignant neoplasm of liver; K59.00 Constipation, unspecified; E87.6 Hypokalemia; G44.209 Tension-type headache, unspecified, not intractable; Z86.73 Personal history of transient ischemic attack (TIA), and cerebral infarction without residual deficits
CPT/HCPCS: 36415; 70450-TC; 71045-TC-FY; 80048; 80053; 81003; 82550; 82553; 83735; 84439; 84443; 84481; 84484; 85027; 85610; 87086; 93005; 93010; 99282-25; J7030

== ENCOUNTER 2018-05-28 14:47 | Emergency (ER) | payer OTHER ==
[2018-05-28 14:52] VITALS: TEMP 98.1; BMI 29.7
--- NOTE | 2018-05-28 15:21 | PDOC ---
History of Present Illness - General Chief Complaint: Headache Stated Complaint: HEADACHE Time Seen by Provider: 05/28/18 15:20 History Source: Patient Exam Limitations: No Limitations - History of Present Illness Initial Comments: 05/28/18 15:20 77 year old male with PMH liver cancer s/p surgery, HTN, HLD, HCV on tenofovir presented to ED for headache x3 days. Pt stated his headache is located to the top of his head, constant, throbbing, 6/10. He stated his headache feels similar to his prior headaches because it is the same location, but that it usually would have subsided by now. Pt reported no medication for his headache yesterday or the day before, but took two aleve today without relief of his symptoms. Pt denied fever, chills, weakness, numbness, tingling visual changes and all other symptoms. Past History - Past Medical History Allergies/Adverse Reactions: Allergies Allergy/AdvReac Type Severity Reaction Status Date / Time No Known Drug Allergies Allergy Verified 05/28/18 14:52 Home Medications: Ambulatory Orders Aspirin [Aspirin EC] 325 mg PO DAILY 03/06/15 Metoprolol Succinate [Toprol Xl] 50 mg PO DAILY 03/06/15 Nifedipine [Nifedical Xl] 60 mg PO HS 03/06/15 Simvastatin 10 mg PO HS 03/06/15 Tamsulosin HCl [Flomax -] 0.8 mg PO ASDIR 03/06/15 Tenofovir Disoproxil Fumarate [Viread] 300 mg PO DAILY 03/06/15 Losartan Potassium [Cozaar] 100 mg PO DAILY 09/12/15 Anemia: No Asthma: No Cancer: Yes (LIVER CANCER SURGERY) Cardiac Disorders: Yes (CAD) CVA: No COPD: No CHF: No DVT: No Dementia: No Diabetes: No GI Disorders: Yes (ENLARGED PROSTATE) Disorders: No HTN: Yes Hypercholesterolemia: Yes Liver Disease: Yes Seizures: No Thyroid Disease: No - Surgical History Abdominal Surgery: Yes (LIVER) Appendectomy: No Cardiac Surgery: No Cholecystectomy: No Lung Surgery: No Neurologic Surgery: No Orthopedic Surgery: No - Suicide/Smoking/Psychosocial Hx Smoking History: Never smoked Have you smoked in the past 12 months: No Hx Alcohol Use: No Drug/Substance Use Hx: No Substance Use Type: None Hx Substance Use Treatment: No Review of Systems - Review of Systems Able to Perform ROS?: Yes Comments:: 05/28/18 15:42 General: denied fever, chills, night sweats, generalized weakness. HEENT: denied sore throat, rhinorrhea, ear pain. Heart: denied chest pain, palpitations, syncope, diaphoresis. Respiratory: denied shortness of breath, cough, sputum production, hemoptysis. Abdomen: denied abdominal pain, nausea, vomiting, diarrhea, constipation, blood in stool. : denied dysuria, increased urinary frequency, hematuria, urinary incontinence , flank pain. Back: denied back pain. Musculoskeletal: denied joint pain, muscle pain, joint swelling. Neurological: admitted to headache. denied dizziness, numbness, tingling, weakness. Skin: denied rash, laceration, abrasion. *Physical Exam - Vital Signs Last Vital Signs Temp Pulse Resp BP Pulse Ox 98.1 F 67 18 113/59 L 99 05/28/18 14:49 05/28/18 14:49 05/28/18 14:49 05/28/18 14:49 05/28/18 14:49 - Physical Exam Comments: 05/28/18 15:42 Constitutional: Well-nourished, Well-developed, appearing stated age. HEENT: head is normocephalic, atraumatic. EOMI. PERRLA. Neck: supple. Full ROM. Heart: regular rhythm. no murmurs, rubs or gallops. Lungs: clear to auscultation bilaterally. no crackles, rhonchi or wheezing. no stridor. Abdomen: soft, nontender. normal bowel sounds. no rebound, guarding, masses. Extremities: Peripheral pulses intact. No lower extremity edema. Neurological: Alert. Oriented x3. CN2-12 intact. 5/5 strength all extremities. Full sensation all extremities and bilateral face. Finger to nose normal. Gait normal. Psych: awake, alert, oriented x3. Follows commands. Answers questions appropriately. Moderate Sedation - Procedure Monitoring Vital Signs: Procedure Monitoring Vital Signs Temperature 98.1 F 05/28/18 14:49 Pulse Rate 67 05/28/18 14:49 Respiratory Rate 18 05/28/18 14:49 Blood Pressure 113/59 L 05/28/18 14:49 O2 Sat by Pulse Oximetry (%) 99 05/28/18 14:49 ED Treatment Course - LABORATORY CBC & Chemistry Diagram: 05/28/18 15:40 05/28/18 15:40 Medical Decision Making - Medical Decision Making 05/28/18 15:44 77 year old male with above PMH presented to ED for headache. Initial Vital Signs Temp Pulse Resp BP Pulse Ox 98.1 F 67 18 113/59 L 99 05/28/18 14:49 05/28/18 14:49 05/28/18 14:49 05/28/18 14:49 05/28/18 14:49 Afebrile. No tachycardia. No tachypnea. No hypertension. No hypoxia on room air. Labs ordered: CBC, CMP Imaging ordered: none Medications ordered: normal saline bolus 1000 cc, tylenol, reglan, benadryl 05/28/18 16:32 CBC WBC 5.4 K/mm3 (4.0-10.0) 05/28/18 15:40 RBC 4.52 M/mm3 (4.00-5.60) 05/28/18 15:40 Hgb 13.5 GM/dL (11.7-16.9) 05/28/18 15:40 Hct 40.0 % (35.4-49) 05/28/18 15:40 MCV 88.6 fl (80-96) 05/28/18 15:40 MCH 29.9 pg (25.7-33.7) 05/28/18 15:40 MCHC 33.8 g/dl (32.0-35.9) 05/28/18 15:40 RDW 13.6 % (11.9-15.9) 05/28/18 15:40 Plt Count 136 K/MM3 (134-434) 05/28/18 15:40 MPV 9.2 fl (7.5-11.1) 05/28/18 15:40 Absolute Neuts (auto) 3.1 K/mm3 (1.5-8.0) 05/28/18 15:40 Neutrophils % 56.8 % (42.8-82.8) 05/28/18 15:40 Lymphocytes % 32.7 % (8-40) 05/28/18 15:40 Monocytes % 9.1 % (3.8-10.2) 05/28/18 15:40 Eosinophils % 0.6 % (0-4.5) 05/28/18 15:40 Basophils % 0.8 % (0-2.0) 05/28/18 15:40 Nucleated RBC % 0 % (0-0) 05/28/18 15:40 No leukocytosis. No anemia. CMP Sodium 140 mmol/L (136-145) 05/28/18 15:40 Potassium 3.4 mmol/L (3.5-5.1) L 05/28/18 15:40 Chloride 102 mmol/L (98-107) 05/28/18 15:40 Carbon Dioxide 28 mmol/L (21-32) 05/28/18 15:40 Anion Gap 10 MMOL/L (8-16) 05/28/18 15:40 BUN 23 mg/dL (7-18) H 05/28/18 15:40 Creatinine 1.8 mg/dL (0.55-1.3) H 05/28/18 15:40 Creat Clearance w eGFR 36.77 (>60) 05/28/18 15:40 Random Glucose 105 mg/dL (74-106) 05/28/18 15:40 Calcium 9.0 mg/dL (8.5-10.1) 05/28/18 15:40 Phosphorus 2.4 mg/dL (2.5-4.9) L 05/28/18 15:40 Magnesium 2.5 mg/dL (1.8-2.4) H 05/28/18 15:40 Total Bilirubin 0.4 mg/dL (0.2-1) 05/28/18 15:40 AST 23 U/L (15-37) 05/28/18 15:40 ALT 31 U/L (13-61) 05/28/18 15:40 Alkaline Phosphatase 84 U/L (45-117) 05/28/18 15:40 Total Protein 7.9 g/dl (6.4-8.2) 05/28/18 15:40 Albumin 4.0 g/dl (3.4-5.0) 05/28/18 15:40 No clinically significant electrolyte abnormalities. Mild bump in Cr -Baseline 1.3/1.4 - Pt is receiving IV fluids No transaminitis 05/28/18 17:14 Pt reassessed, reporting headache is improving, currently 07/05. Will reassess. 05/28/18 17:39 Pt reassessed, reported headache improving, currently 3. Pt discharged. Pt informed to follow up with PCP. *DC/Admit/Observation/Transfer Diagnosis at time of Disposition: Headache, Creatinine elevation - Discharge Dispostion Disposition: HOME Condition at time of disposition: Improved Decision to Admit order: No - Referrals Referrals: Yaakov Lawson MD [Primary Care Provider] - - Patient Instructions Additional Instructions: You were seen today for a headache. Your kidney function was a little decreased today, possibly from dehydration, follow up on this finding with your primary care doctor. Take Tylenol over the counter for your headache, take as advised on label. When you have a headache in the future take 1000 mg tylenol over the counter. If your headache does not improve take 600 mg ibuprofen. Drink lots of clear fluids, like water, to stay hydrated. Follow up with your primary care doctor in 1-2 days. Return to the Emergency Department for chest pain, shortness of breath, weakness , numbness, tingling, drooping of the face, blurry vision, double vision, fever , neck stiffness or any other new, worsening or concerning symptoms. - Post Discharge Activity Forms/Work/School Notes: Back to Work
[2018-05-28] MEDS ORDERED: ACETAMINOPHEN 1000 MG/100 ML VIAL (NON FORMULARY) IVPB ONE (15:37)
[2018-05-28] MEDS ORDERED: METOCLOPRAMIDE HCL INJECTION 10 MG/2 ML VIAL IVPUSH ONE (15:37)
[2018-05-28] MEDS ORDERED: SODIUM CHLORIDE 1,000 ML IV STA (15:37)
[2018-05-28 15:45] LABS: BASO % 0.8 % (0-2.0); EOS % 0.6 % (0-4.5); HEMOGLOBIN 13.5 GM/dL (11.7-16.9); LYMPH % 32.7 % (8-40); MCH 29.9 pg (25.7-33.7); MCHC 33.8 g/dl (32.0-35.9); MEAN CELL VOLUME 88.6 fl (80-96); MEAN PLT VOLUME 9.2 fl (7.5-11.1); MONO % 9.1 % (3.8-10.2); NEUT % 56.8 % (42.8-82.8); PLATELET COUNT 136 K/MM3 (134-434); RBC 4.52 M/mm3 (4.00-5.60); RDW 13.6 % (11.9-15.9); WHITE BLOOD COUNT 5.4 K/mm3 (4.0-10.0)
[2018-05-28] MEDS ORDERED: METOCLOPRAMIDE HCL INJECTION 10 MG/2 ML VIAL ONE (15:45)
[2018-05-28] MEDS ORDERED: ACETAMINOPHEN INJECTION 100 ML IVPB ONE (15:46)
--- NOTE | 2018-05-28 15:55 | PDOC ---
Attending Attestation - Resident Resident Name: Esla Metzger - ED Attending Attestation I have performed the following: I have examined & evaluated the patient, The case was reviewed & discussed with the resident, I agree w/resident's findings & plan, Exceptions are as noted - HPI HPI: 05/28/18 15:37 77y M hx of htn, hl, HCV liver CA, chronic headaches presents with 3 days ofa moderate, gradual onset headache at the 'top of his head' consiisteent with his typical headaches that he gets perhaps once a month- has not taken any meds prior to today, but took alleve today without improvement so presented to the ED. Denies any numbness/tingling/weakness, vision changes, n/v, neck pain, cp, sob, palpitations, fever, chills. - Physicial Exam PE: 05/28/18 16:38 GENERAL: The patient is awake, alert, and fully oriented, Nontoxic - in no acute distress. HEAD: Normocephalic, atraumatic. EYES: extraocular movements intact, sclera anicteric, conjunctiva clear. ENT: Normal voice, Moist mucous membranes. NECK: Normal range of motion, supple LUNGS: Breath sounds equal, clear to auscultation bilaterally. No wheezes, no rhonchi, no rales. HEART: Regular rate and rhythm, normal S1 and S2 without murmur, rub or gallop. ABDOMEN: Soft, nontender, EXTREMITIES: Normal range of motion, PSYCH: Normal mood, normal affect. SKIN: Warm, Dry, normal turgor NEURO: Mental status: The patient is oriented x3. Cranial nerves: Cranial nerves II through XII are intact Motor: The upper extremities are 5 over 5 in all muscle groups. The lower extremities are 5 over 5 in all muscle groups. Negative pronator drift Sensation: Sensation is intact to light touch throughout. romberg negative Cerebellar: Ltfpej-[id number]-[id number] is normal in both upper extremities. Heel-knee- smith is normal in both lower extremities. rapid alternating movements are normal. Reflexes: 2+ and symmetric in the upper and lower extremities. Gait: Normal. Heel and toe walking are normal. Tandem gait is normal. - Medical Decision Making 05/28/18 16:39 Suspect tension headache we'll give the patient Reglan, fluids Tylenol, we will reassess No redflags suggestive of of acute or dangerous headache 05/28/18 17:05 pt feeling improved will dc with pmd fu return precuations were discussed
[2018-05-28 16:12] LABS: ALK PHOS 84 U/L (45-117); ANION GAP 10 MMOL/L (8-16); BILIRUBIN,TOTAL 0.4 mg/dL (0.2-1); BLOOD UREA NITROGEN 23 mg/dL (7-18); CHLORIDE 102 mmol/L (98-107); CO2 28 mmol/L (21-32); CREATININE 1.8 mg/dL (0.55-1.3); GLUCOSE,RANDOM 105 mg/dL (74-106); MAGNESIUM 2.5 mg/dL (1.8-2.4); PHOSPHOROUS 2.4 mg/dL (2.5-4.9); POTASSIUM 3.4 mmol/L (3.5-5.1); SGOT/AST 23 U/L (15-37); SGPT/ALT 31 U/L (13-61); SODIUM 140 mmol/L (136-145); TOT PROT 7.9 g/dl (6.4-8.2)
[2018-05-28 17:42] VITALS: BP 112/78; PULSE 56
== END 2018-05-28 18:04 | disposition home or self-care (01) ==
LOC: JER 14:47
PROC: 3E033GC Introduction of Other Therapeutic Substance into Peripheral Vein, Percutaneous Approach (ICD-10-PCS; principal; 2018-05-28)
PROC: 3E033GC Introduction of Other Therapeutic Substance into Peripheral Vein, Percutaneous Approach (ICD-10-PCS; 2018-05-28)
PROC: 3E033NZ Introduction of Analgesics, Hypnotics, Sedatives into Peripheral Vein, Percutaneous Approach (ICD-10-PCS; 2018-05-28)
DX: R51 Headache (principal); R79.89 Other specified abnormal findings of blood chemistry; I10 Essential (primary) hypertension; E78.5 Hyperlipidemia, unspecified; B18.2 Chronic viral hepatitis C; E78.00 Pure hypercholesterolemia, unspecified; N40.0 Benign prostatic hyperplasia without lower urinary tract symptoms; Z85.05 Personal history of malignant neoplasm of liver
CPT/HCPCS: 36415; 80053; 83735; 84100; 85025; 96374; 96375; 99282-25; J0131; J7030

== ENCOUNTER 2018-07-03 18:57 | Emergency (ER) | payer OTHER ==
[2018-07-03 19:31] VITALS: BP 158/84; PULSE 68; TEMP 98.4; BMI 29.7
[2018-07-03] MEDS ORDERED: ACETAMINOPHEN 500 MG TABLET (FP) PO ONE (21:47)
--- NOTE | 2018-07-03 21:50 | PDOC ---
History of Present Illness - General Chief Complaint: Blood Pressure Problem Stated Complaint: HIGH BLOOD PRESURE Time Seen by Provider: 07/03/18 21:26 History Source: Patient Exam Limitations: No Limitations - History of Present Illness Initial Comments: 07/03/18 21:47 Pt is a 77yo M with PMH of HTN, HLD, BPH presenting to ED for elevated BP. Pt states that he usually takes nifedipine in the morning and metoprolol in the afternoon but today he took them both together in the morning. He checked his bp in the afternoon and it was 160/102. Pt was worried and wanted to get checked out. He is endorsing headache at the top of his head which he states began after he checked his blood pressure. Denies chest pain, SOB, weakness, numbness/tingling, syncope, palpitations, abdominal pain, n/v/d, back pain, neck pain. PMD: Androne PMH: see hpi Meds: see med rec Allergies: nkda Social: denies Past History - Past Medical History Allergies/Adverse Reactions: Allergies Allergy/AdvReac Type Severity Reaction Status Date / Time No Known Drug Allergies Allergy Verified 05/28/18 14:52 Home Medications: Ambulatory Orders Aspirin [Aspirin EC] 325 mg PO DAILY 03/06/15 Metoprolol Succinate [Toprol Xl] 50 mg PO DAILY 03/06/15 Nifedipine [Nifedical Xl] 60 mg PO HS 03/06/15 Simvastatin 10 mg PO HS 03/06/15 Tamsulosin HCl [Flomax -] 0.8 mg PO ASDIR 03/06/15 Tenofovir Disoproxil Fumarate [Viread] 300 mg PO DAILY 03/06/15 Losartan Potassium [Cozaar] 100 mg PO DAILY 09/12/15 Anemia: No Asthma: No Cancer: Yes (LIVER CANCER SURGERY) Cardiac Disorders: Yes (CAD) CVA: No COPD: No CHF: No DVT: No Dementia: No Diabetes: No GI Disorders: Yes (ENLARGED PROSTATE) Disorders: No HTN: Yes Hypercholesterolemia: Yes Liver Disease: Yes Seizures: No Thyroid Disease: No - Surgical History Abdominal Surgery: Yes (LIVER) Appendectomy: No Cardiac Surgery: No Cholecystectomy: No Lung Surgery: No Neurologic Surgery: No Orthopedic Surgery: No - Suicide/Smoking/Psychosocial Hx Smoking History: Unknown if ever smoked Have you smoked in the past 12 months: No Hx Alcohol Use: No Drug/Substance Use Hx: No Substance Use Type: None Hx Substance Use Treatment: No Review of Systems - Review of Systems Constitutional: No: Chills, Fever, Weakness HEENTM: No: Eye Pain, Blurred Vision, Double Vision Respiratory: No: Cough, Shortness of Breath Cardiac (ROS): No: Chest Pain, Lightheadedness, Palpitations, Syncope ABD/GI: No: Constipated, Diarrhea, Nausea, Vomiting, Abdominal cramping : No: Symptoms Reported Musculoskeletal: No: Back Pain, Neck Pain Integumentary: No: Symptoms Reported Neurological: Yes: Headache. No: Numbness, Tingling, Tremors, Weakness *Physical Exam - Vital Signs Last Vital Signs Temp Pulse Resp BP Pulse Ox 98.4 F 68 20 158/84 97 07/03/18 19:29 07/03/18 19:29 07/03/18 19:29 07/03/18 19:29 07/03/18 19:29 - Physical Exam General Appearance: Yes: Nourished, Appropriately Dressed. No: Apparent Distress HEENT: positive: EOMI, MICKEY, Normal ENT Inspection Neck: positive: Trachea midline, Supple. negative: Lymphadenopathy (R), Lymphadenopathy (L) Respiratory/Chest: positive: Lungs Clear, Normal Breath Sounds. negative: Chest Tender, Crackles, Rhonchi, Wheezing Cardiovascular: positive: Regular Rhythm, Regular Rate, S1, S2. negative: Edema , JVD, Murmur Vascular Pulses: Carotid (R): 2+, Carotid (L): 2+, Dorsalis-Pedis (R): 2+, Doralis-Pedis (L): 2+ Gastrointestinal/Abdominal: positive: Normal Bowel Sounds, Soft. negative: Tender Musculoskeletal: negative: CVA Tenderness Extremity: positive: Normal Capillary Refill. negative: Pedal Edema, Swelling, Calf Tenderness Integumentary: positive: Normal Color, Dry, Warm Neurologic: positive: hebrew cantor II-XII NML intact, Fully Oriented, Alert, Normal Mood/ Affect, Normal Response, Motor Strength 5/5 Medical Decision Making - Medical Decision Making 07/04/18 05:56 Pt is a 77yo M with PMH of HTN, HLD, BPH presenting to ED for elevated BP. Pt states that he usually takes nifedipine in the morning and metoprolol in the afternoon but today he took them both together in the morning. He checked his bp in the afternoon and it was 160/102. Pt was worried and wanted to get checked out. He is endorsing headache at the top of his head which he states began after he checked his blood pressure. Denies chest pain, SOB, weakness, numbness/tingling, syncope, palpitations, abdominal pain, n/v/d, back pain, neck pain. Vitals: wnl PE: normal Pt is not hypertensive. Low suspicion for hypertensive urgency v. emergency. Low suspicion for ACS, CVA, dissection Does not need labs at this time. -Tylenol Pt stable for dc home. Pt agrees to plan. understands return precautions *DC/Admit/Observation/Transfer Diagnosis at time of Disposition: High blood pressure Qualifiers: Hypertension type: unspecified Qualified Code(s): I10 - Essential (primary) hypertension Headache Qualifiers: Headache type: unspecified Headache chronicity pattern: unspecified pattern Intractability: not intractable Qualified Code(s): R51 - Headache - Discharge Dispostion Disposition: HOME Condition at time of disposition: Improved Decision to Admit order: No - Referrals Referrals: Yaakov Lawson MD [Primary Care Provider] - - Patient Instructions Printed Discharge Instructions: DI for High Blood Pressure, How to Monitor Your Blood Pressure at Home Additional Instructions: You were seen in the emergency room today for elevated blood pressure. Your blood pressure here is normal. Please take your medicines as prescribed. I recommend making an appointment with Dr. Lawson this week before you leave for [facility]. Come back to the emergency room if you have chest pain, you have worsening headache, you feel short of breath, you pass out, your blood pressure is 180/ 100 or higher or if any new concerning symptom develops. Thank you - Post Discharge Activity
[2018-07-03] MEDS ORDERED: ACETAMINOPHEN 325 MG TABLET (FP) ONE (22:26)
== END 2018-07-03 22:39 | disposition home or self-care (01) ==
LOC: JER 18:57
DX: R51 Headache (principal); I10 Essential (primary) hypertension; E78.00 Pure hypercholesterolemia, unspecified; N40.0 Benign prostatic hyperplasia without lower urinary tract symptoms
CPT/HCPCS: 99281-25

== ENCOUNTER 2023-12-17 11:13 | Emergency (ER) | payer OTHER ==
[2023-12-17 11:27] VITALS: TEMP 98.3; BMI 29.7
[2023-12-17] MEDS ORDERED: ACETAMINOPHEN INJECTION 100 ML ONE (13:06)
[2023-12-17] MEDS: ACETAMINOPHEN 1000 MG/100 ML BAG IVPB ONE (13:10)
[2023-12-17 13:18] LABS: HEMATOCRIT 41.5 % (35.4-49); HEMOGLOBIN 13.2 GM/dL (11.7-16.9); MCH 28.7 pg (25.7-33.7); MCHC 31.8 g/dl (32.0-35.9); MEAN CELL VOLUME 90.2 fl (80-96); MEAN PLT VOLUME 9.2 fl (7.5-11.1); PLATELET COUNT 151 10^3/uL (134-434); RDW 14.1 % (11.9-15.9); WHITE BLOOD COUNT 6.7 K/mm3 (4.0-10.0)
[2023-12-17 13:21] LABS: EPI CELLS 4 /uL (0-25.1); HYALINE CASTS 1 /uL (0-3.1); URINE APPEARANCE CLEAR; URINE BACTERIA 13 /uL (0-1359); URINE BILIRUBIN NEGATIVE (NEGATIVE); URINE COLOR YELLOW; URINE GLUCOSE (UA) NEGATIVE (NEGATIVE); URINE KETONE TRACE (NEGATIVE); URINE LEUK ESTERASE NEGATIVE (NEGATIVE); URINE NITRITE NEGATIVE (NEGATIVE); URINE PROTEIN 2+ (NEGATIVE); URINE RBC 11 /uL (0-23.9); URINE WBC 11 /uL (0-25.8)
[2023-12-17 14:10] LABS: POTASSIUM 4.6 mmol/L (3.5-5.1)
[2023-12-17 14:13] LABS: ALBUMIN 3.6 g/dl (3.4-5.0); BLOOD UREA NITROGEN 24.9 mg/dL (7-18)
[2023-12-17 14:16] LABS: CREATININE 1.5 mg/dL (0.55-1.3)
[2023-12-17 14:18] LABS: BILIRUBIN,TOTAL 0.7 mg/dL (0.2-1); TOT PROT 7.3 g/dl (6.4-8.2)
[2023-12-17 14:32] LABS: HIV INTERPRETATION NEGATIVE (NEGATIVE)
[2023-12-17 16:12] VITALS: RESP 18
[2023-12-17] MEDS ORDERED: hydrALAZINE HCL 20 MG/ML VIAL ONE (17:24)
[2023-12-17] MEDS: hydrALAZINE HCL 20 MG/ML VIAL IVPUSH ONE (17:35)
[2023-12-17 18:54] VITALS: BP 155/87; PULSE 73
== END 2023-12-17 19:07 | disposition home or self-care (01) ==
LOC: JER 11:13
DX: N50.819 Testicular pain, unspecified (principal)
CPT/HCPCS: 36415; 76870-TC; 80053; 81003; 85027; 86803; 87086; 87389; 93005; 93010; 99283-25; J0131

== ENCOUNTER 2024-01-29 10:53 | Emergency (ER) | payer OTHER ==
[2024-01-29 11:04] VITALS: TEMP 97.9; BMI 28.3
[2024-01-29] MEDS: RIVASTIGMINE TARTRATE 1.5 MG CAPSULE PO ONE (13:10)
[2024-01-29 14:07] LABS: BASO % 0.6 % (0-2.0); EOS % 0.8 % (0-4.5); HEMATOCRIT 43.3 % (35.4-49); LYMPH % 33.1 % (8-40); MCHC 32.4 g/dl (32.0-35.9); MEAN CELL VOLUME 89.7 fl (80-96); MEAN PLT VOLUME 9.2 fl (7.5-11.1); MONO % 7.9 % (3.8-10.2); NEUT % 57.6 % (42.8-82.8); PLATELET COUNT 147 10^3/uL (134-434); RBC 4.82 M/mm3 (4.00-5.60); RDW 13.5 % (11.9-15.9); WHITE BLOOD COUNT 7.3 K/mm3 (4.0-10.0)
[2024-01-29 14:13] LABS: INR 1.05 (0.83-1.09); PROTHROMBIN TIME (PATIENT) 11.9 SEC (9.7-13.0)
[2024-01-29 14:15] LABS: ACTIVATED PTT 33.8 SECONDS (25.2-36.5)
[2024-01-29 14:23] LABS: POTASSIUM 3.3 mmol/L (3.5-5.1)
[2024-01-29 14:25] LABS: CALCIUM 9.5 mg/dL (8.5-10.1)
[2024-01-29 14:26] LABS: BLOOD UREA NITROGEN 20.3 mg/dL (7-18)
[2024-01-29 14:29] LABS: CREATININE 1.5 mg/dL (0.55-1.3)
[2024-01-29 14:30] LABS: BILIRUBIN,TOTAL 0.5 mg/dL (0.2-1); TOT PROT 7.8 g/dl (6.4-8.2)
[2024-01-29 14:34] LABS: N-TERMINAL BNP 488.5 pg/ml (5-450)
[2024-01-29] MEDS ORDERED: POTASSIUM CHLORIDE TABS 20 MEQ TABLET.ER (FP) PO ONE (15:40)
[2024-01-29 15:41] VITALS: BP 167/80; PULSE 55; RESP 15
[2024-01-29] MEDS: POTASSIUM CHLORIDE TABS 20 MEQ TABLET.ER (FP) PO ONE (15:50)
== END 2024-01-29 17:22 | disposition home or self-care (01) ==
LOC: JER 10:53
DX: M79.10 Myalgia, unspecified site (principal); R07.9 Chest pain, unspecified; R06.02 Shortness of breath
CPT/HCPCS: 36415; 71045-TC-FY; 80053; 82550; 83735; 83880; 84484; 85025; 85610; 85730; 93005; 93010; 99285-25